=== PATIENT | female | born 1960 ===

== ENCOUNTER 2019-01-18 10:03 | Emergency (ER) | payer BC ==
[2019-01-18] MEDS ORDERED: Sodium Chloride 0.9% 1,000 ML IV ONE ×2 (10:23→11:57)
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
[2019-01-18 10:44] LABS: BASO # 0.1 K/uL (0.0-0.2); BASO % 0.8 % (0.0-2.0); EOS # 0.1 K/uL (0.0-0.7); EOS % 1.1 % (0.0-4.0); HEMOGLOBIN 14.2 g/dL (11.0-16.0); LYMPH # 1.8 K/uL (1.0-4.3); LYMPH % 17.3 % (20.0-40.0); MEAN CELL VOLUME 92.5 fL (81.0-99.0); MEAN CORPUSCULAR HEMOGLOBIN 31.4 pg (27.0-31.0); MEAN CORPUSCULAR HGB CONC 33.9 g/dL (33.0-37.0); MEAN PLATELET VOLUME 9.3 fL (7.2-11.7); MONO # 0.6 K/uL (0.0-0.8); MONO % 5.4 % (0.0-10.0); NEUT # 7.9 K/uL (1.8-7.0); NEUT % 75.4 % (50.0-75.0); RBC 4.53 Mil/uL (3.80-5.20); RED CELL DISTRIBUTION WIDTH 13.6 % (11.5-14.5); WHITE BLOOD COUNT 10.5 K/uL (4.8-10.8)
[2019-01-18 11:05] LABS: ALB/GLOB RATIO 1.8 (1.0-2.1); ALBUMIN 4.5 g/dL (3.5-5.0); ALT/SGPT 23 U/L (9-52); AST/SGOT 25 U/L (14-36); BLOOD UREA NITROGEN 22 mg/dL (7-17); CALCIUM 10.5 mg/dl (8.6-10.4); GFR NON-AFRICAN AMERICAN > 60; LIPASE 75 U/L (23-300)
[2019-01-18] MEDS ORDERED: Alum-Mag Hydrox-Simethicone Susp (30 mL) PO STA (11:30)
[2019-01-18] MEDS ORDERED: Aluminum Hydroxide/Magnesium Hydroxide Susp (30 mL) ONE (11:44)
[2019-01-18] MEDS ORDERED: Sodium Chloride 0.9% 1,000 ML ONE (12:00)
[2019-01-18 12:18] LABS: SQUAMOUS EPITHIAL 2 /hpf (0-5); URINE AMORPHOUS SEDIMENT MANY /ul (<OCC); URINE BACTERIA RARE (<OCC); URINE BILIRUBIN NEGATIVE (NEGATIVE); URINE BLOOD NEGATIVE (NEGATIVE); URINE CLARITY Hazy (Clear); URINE COLOR YELLOW (YELLOW); URINE GLUCOSE (UA) NORMAL (Normal); URINE LEUKOCYTE ESTERASE NEG Leu/uL (Negative); URINE PROTEIN NEGATIVE (NEGATIVE); URINE UROBILINOGEN NORMAL mg/dL (0.2-1.0)
--- NOTE | 2019-01-18 12:51 | RAD ---
Date of service: 01/18/2019 PROCEDURE: Radiographs of the chest and abdomen (obstructive series) HISTORY: Abd Pain COMPARISON: None available. TECHNIQUE: AP radiograph of the chest, with upright and supine radiographs of the abdomen. FINDINGS: CHEST: Heart size appears within normal limits. Hyperinflation may be seen in the setting of COPD. No focal consolidation, significant pleural effusion, or definite pneumothorax. 12 mm right lower lobe nodular opacity. Discoid atelectasis, left lung base. Please note that chest x-ray has limited sensitivity for the detection of pulmonary masses. Multiple extensive chronic appearing left-sided rib fracture deformities at least 4 of which demonstrate postsurgical fixation. ABDOMEN AND PELVIS: Nonspecific bowel gas pattern with numerous air-filled loops of small bowel in the left abdomen; small-bowel obstruction not excluded. Moderate constipation. No definite free air. Extensive postsurgical fixation of the pelvis and lower lumbar spine. IMPRESSION: Nonspecific bowel gas pattern with numerous air-filled loops of small bowel in the left abdomen; small-bowel obstruction not excluded. Moderate constipation. Multiple extensive chronic appearing left-sided rib fracture deformities at least 4 of which demonstrate postsurgical fixation. Extensive postsurgical fixation of the pelvis and lower lumbar spine. Hyperinflation may be seen in the setting of COPD. 12 mm right lower lobe nodular opacity; if indicated suggest CT of the chest may be considered for further evaluation. Discoid atelectasis, left lung base.
[2019-01-18 13:00] VITALS: BP 142/68; PULSE 82; RESP 19; TEMP 98
[2019-01-18 13:07] VITALS: O2SAT 97
--- NOTE | 2019-01-18 13:18 | CT ---
PROCEDURE: CT Abdomen and Pelvis without Oral or IV contrast. HISTORY: Pain COMPARISON: Obstructive series performed 01/18/19 TECHNIQUE: Contiguous axial images of the abdomen and pelvis. No oral or IV contrast administered. Coronal and Sagittal reformats generated and reviewed. Radiation dose: Total exam DLP = 285.08 mGy-cm. This CT exam was performed using one or more of the following dose reduction techniques: Automated exposure control, adjustment of the mA and/or kV according to patient size, and/or use of iterative reconstruction technique. FINDINGS: Examination limited by lack of oral and IV contrast as well as paucity of intra-abdominal/intrapelvic fat. Extensive streak artifact from pelvic and lumbar hardware. There is limited evaluation of the solid organs without the administration of IV contrast. LOWER THORAX: No visible consolidation, pleural effusion, or pneumothorax. LIVER: Unremarkable unenhanced appearance. GALLBLADDER AND BILE DUCTS: Unremarkable unenhanced appearance. PANCREAS: Unremarkable unenhanced appearance. SPLEEN: Unremarkable unenhanced appearance. ADRENALS: Unremarkable unenhanced appearance. KIDNEYS AND URETERS: No hydronephrosis or obstructing renal calculus. BLADDER: The urinary bladder appears unremarkable. 2.3 x 1.2 cm left adnexal cyst presumably ovarian. REPRODUCTIVE: Uterus is present. APPENDIX: The presumed appendix appears within normal limits of caliber. No secondary signs of acute appendicitis. BOWEL: The stomach is nondistended. Lack of oral contrast limits evaluation for bowel pathology. The bowel loops appear within normal limits of caliber without evidence of intestinal obstruction. Thick-walled small bowel loops may reflect enteritis; correlate clinically. Moderate to severe diffuse constipation. PERITONEUM: No significant free fluid. No definite free air. LYMPH NODES: No bulky lymphadenopathy identified. VASCULATURE: No significant atherosclerotic calcifications present. No aortic aneurysm. BONES: Postsurgical fixation of numerous left-sided ribs and the pelvis. Posterior lumbar fusion of the lower lumbar spine from L5 through the sacrum. OTHER FINDINGS: None. IMPRESSION: Limited study. Nonspecific thick-walled small bowel loops appear prominent in the left upper quadrant; correlate clinically for possibility of enteritis. Moderate to severe diffuse constipation. Evidence of 2.3 x 1.2 cm left ovarian cyst. Additional findings as above.
== END 2019-01-18 16:40 | disposition home or self-care (01) ==
LOC: C.ER 10:03
DX: R10.13 Epigastric pain (principal); R11.2 Nausea with vomiting, unspecified; K59.00 Constipation, unspecified
CPT/HCPCS: 74022; 74176; 80053; 81001; 83690; 85025; 96361; 96374; 96375; 99285; J2060; J2405; J7030